=== PATIENT | female | born 1990 | race Caucasian/White ===

== ENCOUNTER 2025-02-04 04:39 | Emergency (ER) | payer SELFPAY ==
[2025-02-04 04:42] VITALS: PULSE 107; RESP 22; O2SAT 100
== END 2025-02-04 05:31 | disposition left against medical advice (07) ==
LOC: ER 04:39
DX: R68.84 Jaw pain (principal); Z53.21 Procedure and treatment not carried out due to patient leaving prior to being seen by health care provider